=== PATIENT | male | born 1945 | race Caucasian/White ===

== ENCOUNTER 2024-02-20 11:47 | Emergency (ER) | payer OTHER ==
[~2024-02-20] VITALS: Ht 167.6 cm; Wt 60.8 kg
[2024-02-20 11:55] VITALS: BP 157/89; TEMP 98.7; O2SAT 98
== END 2024-02-20 12:30 | disposition home or self-care (01) ==
LOC: ER 12:24
DX: F41.9 Anxiety disorder, unspecified (principal); Z76.0 Encounter for issue of repeat prescription; I10 Essential (primary) hypertension; Z60.2 Problems related to living alone